=== PATIENT | male | born 1985 | race Caucasian/White ===

== ENCOUNTER 2023-06-08 08:35 | Emergency (ER) | payer OTHER ==
[2023-06-08 08:53] VITALS: BP 131/73; O2SAT 97
--- NOTE | 2023-06-08 10:02 | ED Physician Documentation ---
PD HPI LOWER EXT INJURY - Stated complaint Stated Complaint: RT BIG TOE INJ - Chief complaint Chief Complaint: Wound - History obtained from History obtained from: Patient - History of Present Illness PD HPI LOW EXT INJURY LOCATION: Right, Toe Type of injury: Blunt / blow Where injury occurred: Home Timing - onset: Today, Yesterday Timing - details: Abrupt onset, Still present Improved by: Rest, Immobilization Worsened by: Moving, Palpating Associated symptoms: No: Weakness, Numbness, Tingling Contributing factors: No: Anticoagulated Similar symptoms before: Has not had sx before Recently seen: Not recently seen - Additional information Additional information: Titi Nuñez 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 He is in here now for evaluation. Review of Systems Constitutional: denies: Fever Respiratory: denies: Cough GI: denies: Vomiting, Diarrhea PD PAST MEDICAL HISTORY - Past Medical History Past Medical History: No - Past Surgical History Past Surgical History: No - Present Medications Home Medications: Ambulatory Orders Medication Instructions Recorded Confirmed No Known Home Medications 06/08/23 06/08/23 - Allergies Allergies/Adverse Reactions: Allergies Allergy/AdvReac Type Severity Reaction Status Date / Time No Known Drug Allergies Allergy Verified 06/08/23 08:47 - Social History Does the pt smoke?: No Smoking Status: Never smoker Does the pt drink ETOH?: No Does the pt have substance abuse?: No - Immunizations Immunizations are current?: Yes PD ED PE NORMAL - Vitals Vital signs reviewed: Yes (hypertensive ) - General General: Alert and oriented X 3, No acute distress, Well developed/nourished - HEENT HEENT: Atraumatic, PERRL, EOMI - Respiratory Respiratory: No respiratory distress - Derm Derm: Normal color, Warm and dry, No rash - Extremities Extremities: No deformity, No edema, Other (The nail appears avulsed and the toe does not appear fractured. 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 Great toe nailbed injury, which is consistent with given history.), EMP independent interpretation of test, See rad report PD Medical Decision Making - ED course Complexity details: considered differential, d/w patient ED course: Titi Hill is a 38-year-old male who is stubbed his toe twice in 2 days and has avulsed his nail partially. There is no evidence of fracture and removal of the nail is not indicated. Departure - Departure Disposition: 01 Home, Self Care Clinical Impression: Nail avulsion of toe Qualifiers: Encounter type: initial encounter Qualified Code(s): S91.209A - Unspecified open wound of unspecified toe(s) with damage to nail, initial encounter Condition: Stable Instructions: ED Avulsion Nail Complete Follow-Up: PHILLIP Garza [Provider Group] Comments: Titi, today it does not look like there is any fracture to your great toe. We will not have to remove this nail. A Band-Aid holding the nail in place will assist and the nail will eventually fall off in about 1 to 2 weeks. This will take some 8 months to have the nail growing completely. The tissues underneath will firm up and hurt less over the next 10 days. Discharge Date/Time: 06/08/23 10:32
--- NOTE | 2023-06-08 10:30 | XRAY Report ---
PROCEDURE: Toe(s) RT INDICATIONS: toe contusion nail lifted TECHNIQUE: 3 views of the first toe(s) acquired. COMPARISON: None. FINDINGS: Bones: No fractures or dislocations. No suspicious bony lesions. Soft tissues: Soft tissue gas can be seen deep to the right toenail bed, which is consistent with th e given history. No suspicious soft tissue densities. IMPRESSION: Negative for displaced fracture. Great toe nailbed injury, which is consistent with the given history. Reviewed by: Tonio Espitia MD on 06/08/2023 9:29 AM TAMMIE Approved by: Tonio Espitia MD on 06/08/2023 9:29 AM TAMMIE Station ID: [id number]
== END 2023-06-08 10:32 | disposition home or self-care (01) ==
LOC: ED 08:35
DX: S91.201A Unspecified open wound of right great toe with damage to nail, initial encounter (principal); W22.8XXA Striking against or struck by other objects, initial encounter; Y92.009 Unspecified place in unspecified non-institutional (private) residence as the place of occurrence of the external cause
CPT/HCPCS: 99282; 99283